=== PATIENT | female | born 1995 | race Two or more races ===

== ENCOUNTER 2022-09-22 13:31 | Emergency (ER) | payer SELFPAY ==
[~2022-09-22] VITALS: Ht 165.1 cm; Wt 64.0 kg
[2022-09-22 13:33] VITALS: BP 108/76
[2022-09-22] MEDS ORDERED: KETOROLAC 30MG/ML VIAL IM ONE (14:15)
[2022-09-22] MEDS ORDERED: IBUPROFEN 600MG TABLET PO ONE (14:30)
[2022-09-22] MEDS ORDERED: IBUP-2029 MT (14:32)
[2022-09-22] MEDS ORDERED: PREG150C MT (14:46)
== END 2022-09-22 15:13 | disposition home or self-care (01) ==
LOC: ER 13:56
DX: R51.9 Headache, unspecified (principal); M79.661 Pain in right lower leg; Z98.890 Other specified postprocedural states
CPT/HCPCS: 81025; 93005; 99283